=== PATIENT | female | born 1985 | race Caucasian/White ===

== ENCOUNTER 2020-01-22 23:37 | Emergency (ER) | payer MEDICAID ==
[2020-01-22] MEDS ORDERED: LORazepam 2 MG/ML VIAL IVP STA (23:58)
--- NOTE | 2020-01-22 23:58 | ED Physician Documentation ---
PD HPI DYSPNEA - Stated complaint Stated Complaint: SOA - Chief complaint Chief Complaint: MHE - History obtained from History obtained from: Patient, EMS - History of Present Illness Timing - onset: How many hours ago (approximately 1 hour [employer]) Timing - onset during: Rest Timing - details: Abrupt onset Improved by: Epi pen, Benadryl Associated symptoms: No: Fever, Cough, Wheezing, Chest pain / discomfort, Palpitations, Diaphoresis, Bilateral edema, Unilateral edema Similar symptoms before: Has not had sx before Recently seen: Not recently seen - Additional information Additional information: BIBA. Patient has been drinking tonight with friends and after approximately 10 beers, she developed shortness of breath. Per medics, patient's friend administered IM epipen and told medics she had an allergy to alcohol (the friend said this; the patient tells me she does not have such an allergy and does not know why this information about an alcohol allergy was conveyed). Medics gave patient 50mg IV benadryl and 4mg IV zofran due to subsequent emesis. patient is hyperventilating when I enter the room although within approximately 1 minute, she suddenly stops hyperventilating and breathes regularly and without any distress, speaks in full sentences and NAD. Review of Systems Constitutional: denies: Fever, Chills, Sweats Cardiac: reports: Reviewed and negative Respiratory: reports: Dyspnea. denies: Cough, Wheezing GI: reports: Reviewed and negative : denies: Now E[facility] PD PAST MEDICAL HISTORY - Present Medications Home Medications: Ambulatory Orders Medication Instructions Recorded Confirmed Fluoxetine HCl 60 mg PO DAILY 01/23/20 01/23/20 Trazodone HCl 150 mg PO QPM 01/23/20 01/23/20 - Allergies Allergies/Adverse Reactions: Allergies Allergy/AdvReac Type Severity Reaction Status Date / Time bupropion [From Wellbutrin] Allergy Hallucinati Verified 01/23/20 00:02 ons morphine Allergy Itching Verified 01/23/20 00:02 - Social History Does the pt drink ETOH?: Yes PD ED PE NORMAL - Vitals Vital signs reviewed: Yes - General General: Alert and oriented X 3, No acute distress ((see HPI: initially she is hyperventilating and appears anxious, but after approximately 1 minute of my being in the room, she very suddenly breathes normally and in NAD)), Well developed/nourished - HEENT HEENT: PERRL, EOMI, Moist mucous membranes - Neck Neck: Supple, no meningeal sign - Cardiac Cardiac: RRR, No murmur - Respiratory Respiratory: No respiratory distress, Clear bilaterally - Abdomen Abdomen: Soft, Non tender - Derm Derm: Normal color, Warm and dry - Extremities Extremities: No edema - Neuro Neuro: Alert and oriented X 3 Results - Vitals Vitals: Vital Signs - 24 hr 01/23/20 02:25 Temperature 36.7 C Heart Rate 86 Respiratory 20 Rate Blood Pressure 105/75 O2 Saturation 98 Oxygen O2 Source Room air - Rads (name of study) chest xray Radiology: Prelim report reviewed, See rad report PD MEDICAL DECISION MAKING - ED course Complexity details: reviewed results, re-evaluated patient, considered differential, d/w patient ED course: patient had episodes of drowsiness during ED stay but awakens to tactile stimulation. she had no episodes of dyspnea, tachypnea, nor respiratory distress during ED stay after my initial evaluation. Friend came to ED to drive patient home. Departure - Departure Disposition: 01 Home, Self Care Clinical Impression: Dyspnea Condition: Good Instructions: ED Dyspnea Shortness of Breath Follow-Up: Ailyn Jefferson ARNP [Primary Care Provider] - Discharge Date/Time: 01/23/20 02:30
[2020-01-23] MEDS ORDERED: SODIUM CHLORIDE 0.9% 1,000 ML IV ONE (00:02)
--- NOTE | 2020-01-23 01:15 | XRAY Report ---
Reason: dyspnea Procedure Date: 01/23/2020 Accession Number: [id number] / [id number] Procedure: XR - Chest 2 View X-Ray CPT Code: 60152 Final Report FULL RESULT: EXAM: CHEST RADIOGRAPHY EXAM DATE: 01/23/2020 12:24 AM CLINICAL HISTORY: Dyspnea. Cough. COMPARISON: None. TECHNIQUE: 2 views. FINDINGS: Lungs/Pleura: Clear lungs. No pleural effusion. No pneumothorax. Mediastinum: Within exam limitations, the cardiomediastinal contour is normal. Other: None. IMPRESSION: Normal 2-view chest radiography. [facility]
[2020-01-23 02:36] VITALS: BP 105/75
== END 2020-01-23 02:30 | disposition home or self-care (01) ==
LOC: EDUNIT# → ED 23:37
DX: R06.00 Dyspnea, unspecified (principal)
CPT/HCPCS: 71046; 96361; 96374; 99284; J2060

== ENCOUNTER 2020-01-22 23:51 | Outpatient (CLI) | payer MEDICAID | END 2020-01-22 23:59 | disposition critical access hospital (66) | LOC: EMS 23:51 | PROVIDERS: ATTEND Surgery | DX: R06.02 Shortness of breath (principal); R11.2 Nausea with vomiting, unspecified; R05 Cough | CPT/HCPCS: A0425; A0427; A0999 ==

== ENCOUNTER 2020-02-11 22:12 | Emergency (ER) | payer MEDICAID ==
[2020-02-11] MEDS ORDERED: traMADol 50 MG TABLET PO STA (23:11)
[2020-02-11] MEDS ORDERED: IBUPROFEN 600 MG TABLET PO STA (23:11)
--- NOTE | 2020-02-11 23:14 | ED Physician Documentation ---
PD HPI UPPER EXT INJURY - Stated complaint Stated Complaint: INJ RT HAND - Chief complaint Chief Complaint: Trauma Ext - History obtained from History obtained from: Patient - Additonal information Additional information: Pt comes to the ED complaining of R thumb pain and swelling after a ground-level fall earlier today. Pt states she struck her thumb as she landed, but is not sure exactly what happened to the thumb (twisted, flexed, etc). Pt states the thumb has been very painful since. Review of Systems Ten Systems: 10 systems reviewed and negative Constitutional: reports: Reviewed and negative Eyes: reports: Reviewed and negative Ears: reports: Reviewed and negative Nose: reports: Reviewed and negative Throat: reports: Reviewed and negative Cardiac: reports: Reviewed and negative Respiratory: reports: Reviewed and negative GI: reports: Reviewed and negative : reports: Reviewed and negative Skin: reports: Reviewed and negative Musculoskeletal: reports: Extremity pain (R thumb) Neurologic: reports: Reviewed and negative Psychiatric: reports: Reviewed and negative Endocrine: reports: Reviewed and negative Immunocompromised: reports: Reviewed and negative PD PAST MEDICAL HISTORY - Past Medical History Past Medical History: Yes Psych: Depression, Anxiety - Past Surgical History Past Surgical History: Yes General: Appendectomy 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 - Present Medications Home Medications: Ambulatory Orders Medication Instructions Recorded Confirmed Fluoxetine HCl 60 mg PO DAILY 01/23/20 02/11/20 Trazodone HCl 150 mg PO QPM 01/23/20 02/11/20 - Allergies Allergies/Adverse Reactions: Allergies Allergy/AdvReac Type Severity Reaction Status Date / Time bupropion [From Wellbutrin] Allergy Hallucinati Verified 02/11/20 22:26 ons morphine Allergy Itching Verified 02/11/20 22:26 - Social History Does the pt smoke?: Yes Smoking Status: Current every day smoker Does the pt drink ETOH?: Yes Does the pt have substance abuse?: No - Immunizations Immunizations are current?: Yes - POLST Patient has POLST: No PD ED PE NORMAL - Vitals Vital signs reviewed: Yes - General General: Alert and oriented X 3, No acute distress - HEENT HEENT: Atraumatic, PERRL, EOMI, Moist mucous membranes - Neck Neck: Supple, no meningeal sign - Cardiac Cardiac: Strong equal pulses - Respiratory Respiratory: No respiratory distress - Derm Derm: Normal color, Warm and dry, No rash, Other (No contusion of R thumb) - Extremities Extremities: No deformity, Other (PT has tenderness over her R 1st MCP joint. MIld edema. No contusion. No deformity. Pain with ROM.) - Neuro Neuro: Alert and oriented X 3 - Psych Psych: Normal mood, Normal affect Results - Vitals Vitals: Oxygen O2 Source Room air - Rads (name of study) R hand XR Radiology: Final report received, EMP read indepedently, See rad report (negative) PD MEDICAL DECISION MAKING - ED course Complexity details: reviewed old records, reviewed results, re-evaluated patient, considered differential, d/w patient ED course: PT was worked up with hand XR series, which was negative. We have discussed icing and OTC medications for symptomatic relief. Departure - Departure Disposition: 01 Home, Self Care Clinical Impression: Left thumb sprain Qualifiers: Encounter type: initial encounter Sprain of finger site: unspecified site Qualified Code(s): S63.602A - Unspecified sprain of left thumb, initial encounter Condition: Stable Instructions: ED Sprain Finger Comments: Your x-rays are normal. You have most likely bruised or sprained the thumb. This will most likely begin to feel quite a bit better in the next 24 to 48 hours. You may use ice, ibuprofen, and Tylenol to help with the discomfort. You have been given an extra dose of pain medicine tonight for the initial pain. Please follow-up with your primary care physician for any further concerns. Discharge Date/Time: 02/11/20 23:29
[2020-02-11 23:29] VITALS: BP 145/99
--- NOTE | 2020-02-11 23:49 | XRAY Report ---
Reason: R/O Fx Procedure Date: 02/11/2020 Accession Number: [id number] / [id number] Procedure: XR - Hand 3 View RT CPT Code: Final Report FULL RESULT: EXAM: RIGHT HAND RADIOGRAPHY EXAM DATE: 02/11/2020 11:00 PM. CLINICAL HISTORY: R/O Fx. COMPARISON: None. TECHNIQUE: 3 views. FINDINGS: Bones: Normal. No fractures or bone lesions. Joints: Normal. No subluxations. Soft Tissues: Normal. No soft tissue swelling. IMPRESSION: Normal hand radiography. [facility]
== END 2020-02-11 23:29 | disposition home or self-care (01) ==
LOC: ED 22:12
DX: S63.601A Unspecified sprain of right thumb, initial encounter (principal); W19.XXXA Unspecified fall, initial encounter; F17.200 Nicotine dependence, unspecified, uncomplicated
CPT/HCPCS: 73130; 99283; 99284; A9270

== ENCOUNTER 2020-03-20 19:43 | Emergency (ER) | payer MEDICAID ==
[2020-03-20 19:52] VITALS: BP 167/93
[2020-03-20] MEDS ORDERED: SILVER SULFADIAZINE CREAM 25 GM TUBE TOP STA (20:29)
[2020-03-20] MEDS ORDERED: IBUPROFEN 800 MG TABLET PO STA (20:29)
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
== END 2020-03-20 20:45 | disposition home or self-care (01) ==
LOC: ED 19:43
DX: T22.211A Burn of second degree of right forearm, initial encounter (principal); X10.2XXA Contact with fats and cooking oils, initial encounter; F17.200 Nicotine dependence, unspecified, uncomplicated
CPT/HCPCS: 99282; 99284; A9270